=== PATIENT | male | born 1995 | race Caucasian/White ===

== ENCOUNTER 2017-07-19 12:07 | Inpatient (IN) | payer BC, OTHER ==
[~2017-07-19] VITALS: Ht 182.9 cm; Wt 95.3 kg
[2017-07-19] MEDS ORDERED: LOPERAMIDE HCL 2 MG CAPSULE PO PRN ×2 (14:00)
[2017-07-19] MEDS ORDERED: CLONIDINE HCL 0.1 MG TABLET PO PRN (14:00)
[2017-07-19] MEDS ORDERED: ACETAMINOPHEN 325 MG TABLET PO PRN (14:00)
[2017-07-19] MEDS ORDERED: MIRALAX 17 GM POWD.PACK PO PRN (14:00)
[2017-07-19] MEDS ORDERED: LORAZEPAM 2 MG/1 ML VIAL IM PRN (14:00)
[2017-07-19] MEDS ORDERED: MAGNESIUM HYDROXIDE 30 ML LIQUID UDC PO PRN (14:00)
[2017-07-19] MEDS ORDERED: diphenhydrAMINE 50 MG CAPSULE PO PRN (14:00)
[2017-07-19] MEDS ORDERED: IBUPROFEN 400 MG TABLET PO PRN (14:00)
[2017-07-19] MEDS ORDERED: ONDANSETRON 4 MG/2 ML VIAL IM PRN (14:00)
[2017-07-19] MEDS ORDERED: ONDANSETRON ODT 4 MG TAB.RAPDIS SL PRN (14:00)
[2017-07-19] MEDS ORDERED: DICYCLOMINE HCL 20 MG TABLET PO PRN (14:00)
[2017-07-19] MEDS ORDERED: MAG HYDROX/AL HYDROX/SIMETH 30 ML LIQUID UDC PO PRN (14:00)
[2017-07-19] MEDS ORDERED: THIAMINE HCL 200 MG/2 ML VIAL IM ONE ×2 (14:00→15:30)
[2017-07-19] MEDS ORDERED: LORAZEPAM 1 MG TABLET PO PRN ×2 (14:00)
[2017-07-19] MEDS ORDERED: PERMETHRIN 5% CREAM 60 GM TUBE TP ONE (14:15)
[2017-07-19] MEDS ORDERED: ARIP10TA9 PO (15:28)
[2017-07-19] MEDS ORDERED: BUSP10TA3 PO (15:28)
[2017-07-19] MEDS ORDERED: GABA300C PO (15:28)
[2017-07-19] MEDS ORDERED: BUPR300T52 PO (15:28)
[2017-07-19] MEDS ORDERED: QUET300T2 PO (15:28)
[2017-07-19] MEDS ORDERED: FLUO40CA8 PO (15:28)
[2017-07-19 16:00] VITALS: BP 113/65
[2017-07-19] MEDS: GABAPENTIN 300 MG CAPSULE PO SCH (17:00)
[2017-07-19] MEDS: busPIRone 10 MG TABLET PO SCH (17:00)
[2017-07-19 17:35] LABS: BASOPHILS % (AUTO) 0.5 % (0.0-2.0); EOSINOPHILS # (AUTO) 0.1 K/uL (0.0-0.7); EOSINOPHILS % (AUTO) 0.8 % (0.0-7.0); HEMATOCRIT 43.8 % (36.7-47.1); HEMOGLOBIN 14.9 g/dL (12.5-16.3); LYMPHOCYTES % (AUTO) 31.5 % (20.5-51.5); MEAN CORPUSCULAR HEMOGLOBIN 30.3 uug (23.8-33.4); MEAN CORPUSCULAR HGB CONC 34 g/dL (32.5-36.3); MEAN CORPUSCULAR VOLUME 89.4 fL (73.0-96.2); MONOCYTES # (AUTO) 0.7 K/uL (2.0-10.0); MONOCYTES % (AUTO) 7.3 % (0.0-11.0); NEUTROPHILS # (AUTO) 5.7 K/uL (1.8-8.9); NEUTROPHILS % (AUTO) 59.9 % (38.5-71.5); PLATELET COUNT (AUTO) 238 K/uL (152-348); WHITE BLOOD COUNT (AUTO) 9.6 K/uL (3.6-10.2)
[2017-07-19 17:47] LABS: BILIRUBIN,TOTAL 0.5 mg/dL (0.2-1.0); CREATININE 1.1 mg/dL (0.6-1.3); MAGNESIUM 1.9 mg/dL (1.8-2.4); TOTAL PROTEIN, SERUM 7.1 g/dL (6.4-8.2)
[2017-07-19 20:10] VITALS: BP 123/68
[2017-07-19] MEDS ORDERED: LORAZEPAM 1 MG TABLET PO SCH (21:00)
[2017-07-19] MEDS: QUETIAPINE FUMARATE 200 MG TABLET PO SCH (21:51)
[2017-07-20] VITALS: BP 138/65
[2017-07-20 04:00] VITALS: BP 129/63
[2017-07-20 08:00] VITALS: BP 120/51
[2017-07-20] MEDS: TUBERCULIN,PURIF.PROT.DERIV. 5 TU/0.1 ML TEST ID ONE ×2 (09:00→09:31)
[2017-07-20] MEDS ORDERED: buPROPion XL 150 MG TAB.SR.24H PO SCH (09:00)
[2017-07-20] MEDS: THIAMINE HCL 100 MG TABLET PO SCH (09:26)
[2017-07-20] MEDS: FLUOXETINE HCL 20 MG CAPSULE PO SCH (09:26)
[2017-07-20] MEDS: FOLIC ACID 1 MG TABLET PO SCH (09:26)
[2017-07-20] MEDS: GABAPENTIN 300 MG CAPSULE PO SCH ×3 (09:26→17:21)
[2017-07-20] MEDS: busPIRone 10 MG TABLET PO SCH ×3 (09:26→17:21)
[2017-07-20] MEDS: MULTIVITAMINS,THERAPEUTIC TABLET PO SCH (09:26)
[2017-07-20] MEDS: LORAZEPAM 1 MG TABLET PO SCH ×3 (09:26→20:39)
[2017-07-20 12:00] VITALS: BP 132/68
[2017-07-20 13:53] LABS: *AMPHETAMINE, URINE POSITIVE (NEGATIVE); *BARBITURATE, URINE NEGATIVE (NEGATIVE); *CANNABINOID, URINE POSITIVE (NEGATIVE); *COCCAINE, URINE NEGATIVE (NEGATIVE); *OPIATE, URINE NEGATIVE (NEGATIVE); *PHENCYCLIDINE SCREEN,URINE NEGATIVE (NEGATIVE)
[2017-07-20 16:00] VITALS: BP 118/59
[2017-07-20 20:00] VITALS: BP 131/60
[2017-07-20] MEDS: QUETIAPINE FUMARATE 200 MG TABLET PO SCH (20:39)
[2017-07-21] VITALS: BP 101/60
[2017-07-21 04:00] VITALS: BP 122/87
[2017-07-21 06:06] LABS: HEPATITIS B SURFACE AG Negative (Negative)
[2017-07-21 08:00] VITALS: BP 111/62
[2017-07-21] MEDS: busPIRone 10 MG TABLET PO SCH ×3 (09:20→16:11)
[2017-07-21] MEDS: GABAPENTIN 300 MG CAPSULE PO SCH ×3 (09:20→16:11)
[2017-07-21] MEDS: MULTIVITAMINS,THERAPEUTIC TABLET PO SCH (09:20)
[2017-07-21] MEDS: THIAMINE HCL 100 MG TABLET PO SCH (09:20)
[2017-07-21] MEDS: FLUOXETINE HCL 20 MG CAPSULE PO SCH (09:20)
[2017-07-21] MEDS: FOLIC ACID 1 MG TABLET PO SCH (09:20)
[2017-07-21] MEDS: LORAZEPAM 1 MG TABLET PO SCH ×2 (09:20→12:36)
[2017-07-21 12:00] VITALS: BP 109/67
[2017-07-21 16:00] VITALS: BP 121/72
[2017-07-21] MEDS ORDERED: LORAZEPAM 1 MG TABLET PO SCH ×2 (17:00→21:00)
[2017-07-21 20:00] VITALS: BP 108/60
[2017-07-21] MEDS: QUETIAPINE FUMARATE 200 MG TABLET PO SCH (20:34)
[2017-07-22] VITALS: BP 115/67
[2017-07-22 04:00] VITALS: BP 110/66
[2017-07-22 08:00] VITALS: BP 104/57
[2017-07-22] MEDS: FLUOXETINE HCL 20 MG CAPSULE PO SCH (08:40)
[2017-07-22] MEDS: THIAMINE HCL 100 MG TABLET PO SCH (08:40)
[2017-07-22] MEDS: MULTIVITAMINS,THERAPEUTIC TABLET PO SCH (08:40)
[2017-07-22] MEDS: FOLIC ACID 1 MG TABLET PO SCH (08:40)
[2017-07-22] MEDS: GABAPENTIN 300 MG CAPSULE PO SCH ×3 (08:40→21:23)
[2017-07-22] MEDS: busPIRone 10 MG TABLET PO SCH ×3 (08:40→16:19)
[2017-07-22] MEDS ORDERED: LORAZEPAM 1 MG TABLET PO SCH ×3 (09:00→21:00)
[2017-07-22] MEDS ORDERED: METHOCARBAMOL 750 MG TABLET PO PRN (10:45)
[2017-07-22 12:00] VITALS: BP 97/64
[2017-07-22 16:00] VITALS: BP 109/61
[2017-07-22 20:00] VITALS: BP 129/71
[2017-07-22] MEDS: QUETIAPINE FUMARATE 200 MG TABLET PO SCH (21:23)
[2017-07-23] VITALS: BP 98/47
[2017-07-23 04:00] VITALS: BP 117/58
[2017-07-23 08:01] VITALS: BP 112/64
[2017-07-23] MEDS: FOLIC ACID 1 MG TABLET PO SCH (08:44)
[2017-07-23] MEDS: THIAMINE HCL 100 MG TABLET PO SCH (08:44)
[2017-07-23] MEDS: MULTIVITAMINS,THERAPEUTIC TABLET PO SCH (08:44)
[2017-07-23] MEDS: LORAZEPAM 1 MG TABLET PO SCH ×2 (08:44→21:27)
[2017-07-23] MEDS: FLUOXETINE HCL 20 MG CAPSULE PO SCH (08:44)
[2017-07-23] MEDS: GABAPENTIN 300 MG CAPSULE PO SCH ×3 (08:44→21:27)
[2017-07-23] MEDS: busPIRone 10 MG TABLET PO SCH ×3 (08:44→16:40)
[2017-07-23 12:15] VITALS: BP 130/74
[2017-07-23] MEDS ORDERED: DIPH50CA37 PO (15:09)
[2017-07-23] MEDS ORDERED: CLON0.1T14 PO (15:09)
[2017-07-23] MEDS ORDERED: GABA-534 PO (15:09)
[2017-07-23] MEDS ORDERED: HYDR-3026 PO (15:09)
[2017-07-23 16:55] VITALS: BP 128/74
[2017-07-23] MEDS: QUETIAPINE FUMARATE 200 MG TABLET PO SCH (21:27)
[2017-07-23 21:33] VITALS: BP 142/82
[2017-07-24 01:26] VITALS: BP 142/82
[2017-07-24 04:01] VITALS: BP 142/82
[2017-07-24 08:55] VITALS: BP 117/65
[2017-07-24] MEDS ORDERED: LORAZEPAM 1 MG TABLET PO SCH (09:00)
[2017-07-24] MEDS: GABAPENTIN 300 MG CAPSULE PO SCH ×3 (09:17→20:39)
[2017-07-24] MEDS: busPIRone 10 MG TABLET PO SCH ×3 (09:17→16:41)
[2017-07-24] MEDS: MULTIVITAMINS,THERAPEUTIC TABLET PO SCH (09:17)
[2017-07-24] MEDS: FLUOXETINE HCL 20 MG CAPSULE PO SCH (09:17)
[2017-07-24] MEDS: THIAMINE HCL 100 MG TABLET PO SCH (09:17)
[2017-07-24] MEDS: FOLIC ACID 1 MG TABLET PO SCH (09:17)
[2017-07-24 12:20] VITALS: BP 125/64
[2017-07-24 16:55] VITALS: BP 114/56
[2017-07-24] MEDS: QUETIAPINE FUMARATE 200 MG TABLET PO SCH (20:40)
[2017-07-24 21:53] VITALS: BP 133/85
[2017-07-25 00:06] VITALS: BP 133/85
[2017-07-25 04:21] VITALS: BP 133/85
[2017-07-25] MEDS: FLUOXETINE HCL 20 MG CAPSULE PO SCH (08:19)
[2017-07-25] MEDS: MULTIVITAMINS,THERAPEUTIC TABLET PO SCH (08:19)
[2017-07-25] MEDS: GABAPENTIN 300 MG CAPSULE PO SCH (08:19)
[2017-07-25] MEDS: FOLIC ACID 1 MG TABLET PO SCH (08:19)
[2017-07-25] MEDS: busPIRone 10 MG TABLET PO SCH (08:19)
[2017-07-25] MEDS: THIAMINE HCL 100 MG TABLET PO SCH (08:19)
[2017-07-25 08:24] VITALS: BP 139/85
== END 2017-07-25 09:35 | DRG 895 ==
LOC: SRC 13:37
PROVIDERS: ADMIT Internal Medicine; ATTEND Internal Medicine
PROC: HZ2ZZZZ Detoxification Services for Substance Abuse Treatment (ICD-10-PCS; principal; 2017-07-19)
PROC: HZ31ZZZ Individual Counseling for Substance Abuse Treatment, Behavioral (ICD-10-PCS; 2017-07-22)
DX: F10.239 Alcohol dependence with withdrawal, unspecified (principal); K70.10 Alcoholic hepatitis without ascites; F12.20 Cannabis dependence, uncomplicated; F15.10 Other stimulant abuse, uncomplicated; Y90.2 Blood alcohol level of 40-59 mg/100 ml; Z59.0 Homelessness; Z91.5 Personal history of self-harm; T59.811A Toxic effect of smoke, accidental (unintentional), initial encounter; Z81.1 Family history of alcohol abuse and dependence; F41.9 Anxiety disorder, unspecified; F90.9 Attention-deficit hyperactivity disorder, unspecified type; F17.210 Nicotine dependence, cigarettes, uncomplicated; F32.9 Major depressive disorder, single episode, unspecified; Z59.1 Inadequate housing; I10 Essential (primary) hypertension
CPT/HCPCS: 36415; 71045; 80307; 80324; 80349; 83735; 85025; 86580; 86592; 86705; 86803; 87340; 87806; A4663; G0480; J3411; Q0162; Q0163